=== PATIENT | male | born 1970 | race Caucasian/White ===

== ENCOUNTER 2017-09-29 16:22 | Emergency (ER) | payer MEDICARE, MEDICAID ==
[~2017-09-29] VITALS: Ht 167.6 cm; Wt 107.7 kg
[2017-09-29 17:23] LABS: BASOPHILS # (AUTO) 0.03 x10^3/uL (0-0.1); BASOPHILS % (AUTO) 0 % (0-1); EOSINOPHILS # (AUTO) 0.07 x10^3/uL (0-0.4); EOSINOPHILS % (AUTO) 1 % (1-7); LYMPHOCYTES # (AUTO) 2.24 x10^3/uL (1-3.4); LYMPHOCYTES % (AUTO) 32 % (22-44); MD NO; MEAN CORPUSCULAR HEMOGLOBIN 29.7 pg (27.5-34.5); MEAN CORPUSCULAR VOLUME 87.3 fL (81-97); MEAN PLATELET VOLUME 10.1 fL (7.4-10.4); MONOCYTES # (AUTO) 0.52 x10^3/uL (0.2-0.8); MONOCYTES % (AUTO) 8 % (2-9); NEUTROPHILS # (AUTO) 4.14 x10^3/uL (1.8-6.8); NEUTROPHILS % (AUTO) 59 % (42-75); PLATELET COUNT 129 x10^3/uL (130-400); RED BLOOD COUNT 6.08 x10^6/uL (4.38-5.82); RED CELL DISTRIBUTION WIDTH 14.1 % (9.4-14.8)
[2017-09-29 17:28] LABS: INTERNATIONAL NORMALIZED RATIO 1.04 (0.93-1.1); PROTHROMBIN TIME 10.7 Seconds (9.6-11.5)
[2017-09-29 17:30] LABS: MICROSCOPIC NOT IND
[2017-09-29 17:32] LABS: ALANINE AMINOTRANSFERASE 144 U/L (12-78); ANION GAP 5 mmol/L (5-15); CALCIUM 9.2 mg/dL (8.5-10.1); CHLORIDE 107 mmol/L (98-107); CREATININE 0.88 mg/dL (0.7-1.3)
[2017-09-29 17:35] LABS: ALKALINE PHOSPHATASE 129 U/L (45-117); BILIRUBIN,TOTAL 0.5 mg/dL (0.2-1.0); TOTAL PROTEIN 8.2 g/dL (6.4-8.2)
[2017-09-29 17:40] LABS: CULTURE INDICATED? NO
[2017-09-29] MEDS ORDERED: SODIUM CHLORIDE FLUSH 10ML SYR IVF ONE (18:30)
[2017-09-29] MEDS ORDERED: ONDANSETRON ODT 4 MG PO ONE (18:30)
[2017-09-29] MEDS ORDERED: MORPHINE SULFATE 4 MG/ML, 1ML ONE ×2 (18:47→19:24)
[2017-09-29] MEDS ORDERED: ONDANSETRON ODT 4 MG ONE (18:47)
[2017-09-29] MEDS: MORPHINE SULFATE 4 MG/ML, 1ML IVPush PRN ×2 (18:52→19:40)
[2017-09-29 20:28] VITALS: BP 129/73
== END 2017-09-29 20:31 | disposition home or self-care (01) ==
LOC: ED 19:28
DX: B18.2 Chronic viral hepatitis C (principal); R16.1 Splenomegaly, not elsewhere classified; Z90.49 Acquired absence of other specified parts of digestive tract; F17.210 Nicotine dependence, cigarettes, uncomplicated; K74.69 Other cirrhosis of liver
CPT/HCPCS: 36415; 74176; 80053; 81003; 83690; 85025; 85610; 85730; 96374; 96376; 99285; Q0162

== ENCOUNTER 2018-03-10 17:22 | Emergency (ER) | payer MEDICARE, MEDICAID ==
[~2018-03-10] VITALS: Ht 170.2 cm; Wt 110.8 kg
[~2018-03-10 17:22] MED LIST: PANT40TA5 PO
[2018-03-10] MEDS ORDERED: HYDROcodone/APAP 5/325 TABLET ONE (18:26)
[2018-03-10] MEDS ORDERED: HYDROcodone/APAP 5/325 TABLET PO ONE (18:30)
[2018-03-10 19:26] VITALS: BP 120/75
== END 2018-03-10 19:33 | disposition home or self-care (01) ==
LOC: ED 19:27
DX: S39.012A Strain of muscle, fascia and tendon of lower back, initial encounter (principal); Z87.891 Personal history of nicotine dependence; Z90.89 Acquired absence of other organs; Z90.49 Acquired absence of other specified parts of digestive tract; W05.0XXA Fall from non-moving wheelchair, initial encounter; Y93.89 Activity, other specified; Y92.009 Unspecified place in unspecified non-institutional (private) residence as the place of occurrence of the external cause; Y99.8 Other external cause status
CPT/HCPCS: 72110; 72220; 99284

== ENCOUNTER 2018-05-31 13:52 | Emergency (ER) | payer MEDICARE, MEDICAID ==
[~2018-05-31] VITALS: Ht 170.2 cm; Wt 111.2 kg
[2018-05-31 16:06] VITALS: BP 131/81
== END 2018-05-31 16:08 | disposition home or self-care (01) ==
LOC: ED 14:46
DX: L03.115 Cellulitis of right lower limb (principal); Z90.49 Acquired absence of other specified parts of digestive tract; Z87.891 Personal history of nicotine dependence; Z86.19 Personal history of other infectious and parasitic diseases
CPT/HCPCS: 99284

== ENCOUNTER 2018-09-19 17:51 | Emergency (ER) | payer MEDICARE, MEDICAID ==
[~2018-09-19] VITALS: Ht 167.6 cm; Wt 115.6 kg
[2018-09-19 17:54] VITALS: BP 164/76
--- NOTE | 2018-09-19 18:16 | NUR ---
Pt transported on gurney to ultrasound.
[2018-09-19 18:18] LABS: BASOPHILS # (AUTO) 0.04 x10^3/uL (0-0.1); BASOPHILS % (AUTO) 1 % (0-1); EOSINOPHILS # (AUTO) 0.18 x10^3/uL (0-0.4); EOSINOPHILS % (AUTO) 3 % (1-7); LYMPHOCYTES # (AUTO) 1.97 x10^3/uL (1-3.4); LYMPHOCYTES % (AUTO) 31 % (22-44); MD NO; MEAN CORPUSCULAR HEMOGLOBIN 30.8 pg (27.5-34.5); MEAN CORPUSCULAR HGB CONC 34.5 g/dL (33.2-36.2); MEAN CORPUSCULAR VOLUME 89.1 fL (81-97); MEAN PLATELET VOLUME 10.1 fL (7.4-10.4); MONOCYTES # (AUTO) 0.52 x10^3/uL (0.2-0.8); MONOCYTES % (AUTO) 8 % (2-9); NEUTROPHILS # (AUTO) 3.66 x10^3/uL (1.8-6.8); NEUTROPHILS % (AUTO) 58 % (42-75); PLATELET COUNT 136 x10^3/uL (130-400); RED CELL DISTRIBUTION WIDTH 13.3 % (9.4-14.8)
[2018-09-19 18:31] LABS: ALBUMIN 3.6 g/dL (3.4-5.0); ANION GAP 5 mmol/L (5-15); CALCIUM 8.8 mg/dL (8.5-10.1); CHLORIDE 107 mmol/L (98-107)
--- NOTE | 2018-09-19 18:55 | NUR ---
Provided report to SANDOVAL Meza. All questions answered. Pt away from room on [facility] at ultrasound.
--- NOTE | 2018-09-19 18:55 | NUR ---
PT MOVED TO ROOM 19
--- NOTE | 2018-09-19 18:58 | NUR ---
Provided bedside report to SANDOVAL Meza. All questions answered. SANDOVAL Meza assuming care of pt.
== END 2018-09-19 20:53 | disposition home or self-care (01) ==
LOC: ED 19:46
DX: L03.115 Cellulitis of right lower limb (principal); F17.200 Nicotine dependence, unspecified, uncomplicated; Z90.49 Acquired absence of other specified parts of digestive tract
CPT/HCPCS: 36415; 80048; 82040; 83880; 85025; 93970; 99284

== ENCOUNTER 2019-06-20 18:45 | Emergency (ER) | payer MEDICARE, MEDICAID ==
[2019-06-20 20:16] VITALS: BP 147/96
--- NOTE | 2019-06-20 20:30 | NUR ---
IV STARTED, BLOOD DRAWN. POC DISCUSSED. PA AT BEDSIDE
[2019-06-20] MEDS ORDERED: ONDANSETRON 2MG/ML, 2ML ONE (20:44)
[2019-06-20] MEDS ORDERED: SODIUM CHLORIDE FLUSH 10ML SYR IVF ONE (21:00)
[2019-06-20] MEDS ORDERED: PLEASE ENTER HEIGHT MC SCH (21:00)
[2019-06-20] MEDS ORDERED: ONDANSETRON 2MG/ML, 2ML IVPush ONE (21:00)
[2019-06-20 21:23] LABS: BASOPHILS # (AUTO) 0.02 x10^3/uL (0-0.1); BASOPHILS % (AUTO) 0 % (0-1); EOSINOPHILS # (AUTO) 0.12 x10^3/uL (0-0.4); EOSINOPHILS % (AUTO) 2 % (1-7); LYMPHOCYTES # (AUTO) 2.07 x10^3/uL (1-3.4); LYMPHOCYTES % (AUTO) 32 % (22-44); MD NO; MEAN CORPUSCULAR HEMOGLOBIN 30.2 pg (27.5-34.5); MEAN CORPUSCULAR HGB CONC 33.7 g/dL (33.2-36.2); MEAN CORPUSCULAR VOLUME 89.5 fL (81-97); MEAN PLATELET VOLUME 10.3 fL (7.4-10.4); MONOCYTES # (AUTO) 0.63 x10^3/uL (0.2-0.8); MONOCYTES % (AUTO) 10 % (2-9); NEUTROPHILS # (AUTO) 3.66 x10^3/uL (1.8-6.8); NEUTROPHILS % (AUTO) 56 % (42-75); PLATELET COUNT 129 x10^3/uL (130-400); RED BLOOD COUNT 5.59 x10^6/uL (4.38-5.82); RED CELL DISTRIBUTION WIDTH 13.6 % (9.4-14.8)
--- NOTE | 2019-06-20 21:28 | NUR ---
Patient resting comfortably. Medications given. tolerated well. Requesting water. Given nausea and vomiting, provided with ice chips to assess tolerance. Tolerated well after half hour without further nausea or vomiting. Awaiting lab results
[2019-06-20 21:36] LABS: ALANINE AMINOTRANSFERASE 169 U/L (12-78); ALBUMIN 3.5 g/dL (3.4-5.0); ANION GAP 5 mmol/L (5-15); CALCIUM 8.9 mg/dL (8.5-10.1); CHLORIDE 111 mmol/L (98-107); CREATININE 0.73 mg/dL (0.7-1.3)
[2019-06-20 21:38] LABS: ALKALINE PHOSPHATASE 129 U/L (45-117); BILIRUBIN,TOTAL 0.6 mg/dL (0.2-1.0); TOTAL PROTEIN 7.6 g/dL (6.4-8.2)
== END 2019-06-20 22:40 | disposition home or self-care (01) ==
LOC: ED 22:05
DX: K52.9 Noninfective gastroenteritis and colitis, unspecified (principal); B18.2 Chronic viral hepatitis C; R94.5 Abnormal results of liver function studies
CPT/HCPCS: 36415; 80053; 83690; 85025; 96374; 99283; J2405

== ENCOUNTER 2019-09-18 16:16 | Emergency (ER) | payer MEDICARE, MEDICAID ==
[~2019-09-18] VITALS: Ht 170.2 cm; Wt 109.7 kg
[2019-09-18 16:20] VITALS: BP 155/99
--- NOTE | 2019-09-18 16:34 | NUR ---
PT HERE FOR DENTAL PAIN. PT REPORTSVER PAINFUL, UNABLE TO SEE A DENTIST PT REPORTS POSSIBLE ABCESS ON FACE IT FELLS LIKE TIME HE HAD AN ABCESS BEFORE.
--- NOTE | 2019-09-18 16:45 | NUR ---
Patient/Caregiver given discharge instructions and they have confirmed that they understand the instructions. Patient ambulatory with steady gait.
== END 2019-09-18 16:47 | disposition home or self-care (01) ==
LOC: ED 16:17
DX: K02.9 Dental caries, unspecified (principal); R51 Headache; F17.210 Nicotine dependence, cigarettes, uncomplicated
CPT/HCPCS: 99283

== ENCOUNTER 2019-12-31 21:32 | Emergency (ER) | payer MEDICARE, MEDICAID ==
[~2019-12-31] VITALS: Ht 170.2 cm; Wt 109.0 kg
[2019-12-31] MEDS ORDERED: ONDANSETRON ODT 4 MG ONE (22:11)
[2019-12-31] MEDS ORDERED: FLUORESCEIN OPHTHALMIC 1 MG STRIP ONE (22:11)
[2019-12-31] MEDS ORDERED: PROPARACAINE OPHTH 0.5%, 15ML ONE (22:12)
[2019-12-31 22:25] LABS: BASOPHILS # (AUTO) 0.04 x10^3/uL (0-0.1); BASOPHILS % (AUTO) 1 % (0-1); EOSINOPHILS # (AUTO) 0.18 x10^3/uL (0-0.4); EOSINOPHILS % (AUTO) 3 % (1-7); LYMPHOCYTES # (AUTO) 1.82 x10^3/uL (1-3.4); LYMPHOCYTES % (AUTO) 30 % (22-44); MD NO; MEAN CORPUSCULAR HEMOGLOBIN 29.6 pg (27.5-34.5); MEAN CORPUSCULAR HGB CONC 33.8 g/dL (33.2-36.2); MEAN CORPUSCULAR VOLUME 87.6 fL (81-97); MEAN PLATELET VOLUME 10.2 fL (7.4-10.4); MONOCYTES # (AUTO) 0.64 x10^3/uL (0.2-0.8); MONOCYTES % (AUTO) 11 % (2-9); NEUTROPHILS # (AUTO) 3.35 x10^3/uL (1.8-6.8); NEUTROPHILS % (AUTO) 56 % (42-75); PLATELET COUNT 111 x10^3/uL (130-400); RED BLOOD COUNT 5.09 x10^6/uL (4.38-5.82)
[2019-12-31] MEDS ORDERED: ONDANSETRON ODT 4 MG PO ONE (22:30)
[2019-12-31] MEDS ORDERED: PROPARACAINE OPHTH 0.5%, 15ML EACHEYE ONE (22:30)
[2019-12-31] MEDS ORDERED: FLUORESCEIN OPHTHALMIC 1 MG STRIP EACHEYE ONE (22:30)
[2019-12-31 22:32] LABS: ANION GAP 6 mmol/L (5-15); CALCIUM 8.6 mg/dL (8.5-10.1); CHLORIDE 106 mmol/L (98-107); CREATININE 0.86 mg/dL (0.7-1.3)
[2019-12-31 23:15] VITALS: BP 132/86
== END 2019-12-31 23:34 ==
LOC: ED 22:25
DX: R10.84 Generalized abdominal pain (principal); M54.2 Cervicalgia; L03.221 Cellulitis of neck; H10.023 Other mucopurulent conjunctivitis, bilateral; R11.2 Nausea with vomiting, unspecified; R94.31 Abnormal electrocardiogram [ECG] [EKG]; Z87.891 Personal history of nicotine dependence
CPT/HCPCS: 36415; 80048; 85025; 93005; 99284; Q0162

== ENCOUNTER 2020-05-29 13:54 | Emergency (ER) | payer MEDICARE, MEDICAID ==
[~2020-05-29] VITALS: Ht 170.2 cm; Wt 104.0 kg
[~2020-05-29 13:54] MED LIST changes: -PANT40TA5 PO; +PANT40TA6 PO
[2020-05-29 15:42] LABS: BASOPHILS % (AUTO) 1 % (0-1); EOSINOPHILS % (AUTO) 3 % (1-7); HCT (SEDRATE) 46.5 % (39.2-51.8); LYMPHOCYTES % (AUTO) 31 % (22-44); MONOCYTES % (AUTO) 8 % (2-9); NEUTROPHILS % (AUTO) 58 % (42-75); PLATELET COUNT 124 x10^3/uL (130-400); RED BLOOD COUNT 5.24 x10^6/uL (4.38-5.82); RED CELL DISTRIBUTION WIDTH 13.4 % (9.4-14.8)
[2020-05-29 15:45] LABS: MD NO
[2020-05-29 15:52] LABS: ALBUMIN 3.8 g/dL (3.4-5.0); ANION GAP 2 mmol/L (5-15); CALCIUM 9.2 mg/dL (8.5-10.1); CHLORIDE 107 mmol/L (98-107); CREATININE 0.88 mg/dL (0.7-1.3)
--- NOTE | 2020-05-29 17:05 | NUR ---
COMMUNICATION COORDINATOR: PT TO ROOM FROM LOBBY
[2020-05-29] MEDS ORDERED: HYDROmorphone 2 MG/ML, 1ML IVPush PRN (18:00)
[2020-05-29] MEDS ORDERED: SODIUM CHLORIDE FLUSH 10ML SYR IVF ONE (18:00)
--- NOTE | 2020-05-29 18:34 | NUR ---
Patient in bed, difficulty finding comfortable position. MD aware.
[2020-05-29] MEDS ORDERED: HYDROmorphone 1 MG/ML, 1ML INJ ONE (18:56)
[2020-05-29] MEDS ORDERED: LORazepam 2 MG/ML, 1ML ONE (19:09)
[2020-05-29] MEDS ORDERED: LORazepam 2 MG/ML, 1ML IVPush ONE (19:30)
--- NOTE | 2020-05-29 19:34 | NUR ---
patient to MRI with tech.
[2020-05-29] MEDS ORDERED: GADOTERATE 10 MMOL/20 ML VIAL ONE (19:59)
[2020-05-29 21:05] LABS: MICROSCOPIC AUTO
--- NOTE | 2020-05-29 21:40 | NUR ---
Patient returned from MRI.
[2020-05-29 23:00] VITALS: BP 133/76
[2020-05-30] MEDS ORDERED: SOFO1TAB PO (11:44)
== END 2020-05-29 23:03 | disposition home or self-care (01) ==
LOC: ED 21:34
DX: N30.00 Acute cystitis without hematuria (principal); M47.816 Spondylosis without myelopathy or radiculopathy, lumbar region; F17.200 Nicotine dependence, unspecified, uncomplicated
CPT/HCPCS: 36415; 72157; 72158; 80048; 81001; 82040; 85025; 85651; 87086; 87147; 96374; 96375; 99285; A9575; J1170; J2060

== ENCOUNTER 2021-01-20 21:30 | Emergency (ER) | payer BC, MEDICAID, MEDICARE ==
[~2021-01-20] VITALS: Ht 170.2 cm; Wt 114.7 kg
[~2021-01-20 21:30] MED LIST changes: +SOFO1TAB PO
[2021-01-20 21:41] VITALS: BP 160/87
--- NOTE | 2021-01-20 23:38 | NUR ---
[employer]: PT. TO ROOM FROM LOBBY AT THIS TIME.
[2021-01-20 23:45] LABS: BASOPHILS % (AUTO) 1 % (0-1); EOSINOPHILS % (AUTO) 2 % (1-7); LYMPHOCYTES % (AUTO) 30 % (22-44); MEAN CORPUSCULAR HEMOGLOBIN 29.9 pg (27.5-34.5); MEAN CORPUSCULAR HGB CONC 34.7 g/dL (33.2-36.2); MEAN PLATELET VOLUME 9.5 fL (7.4-10.4); MONOCYTES % (AUTO) 8 % (2-9); NEUTROPHILS % (AUTO) 59 % (42-75); PLATELET COUNT 138 x10^3/uL (130-400); RED BLOOD COUNT 5.33 x10^6/uL (4.38-5.82); RED CELL DISTRIBUTION WIDTH 13.4 % (9.4-14.8)
[2021-01-20 23:55] LABS: ALBUMIN 3.8 g/dL (3.4-5.0); ANION GAP 5 mmol/L (5-15); CALCIUM 8.6 mg/dL (8.5-10.1); CHLORIDE 106 mmol/L (98-107); CREATININE 0.79 mg/dL (0.7-1.3)
--- NOTE | 2021-01-21 00:46 | NUR ---
PATIENT AWARE OF THE NEED TO PROVIDE URINE SAMPLE. PATIENT STATES HE DOESNT FEEL THE NEED TO URINATE. PATIENT HAS URINAL TO PROVIDE URINE SAMPLE.
[2021-01-21 02:30] LABS: MICROSCOPIC AUTO
[2021-01-21] MEDS ORDERED: CEFDINIR 300 MG CAPSULE ONE (02:38)
--- NOTE | 2021-01-21 02:51 | NUR ---
Patient given discharge instructions and they have confirmed that they understand the instructions. Patient ambulatory with steady gait. NAD, all questions answered appropriately, denies additional needs at this time. No personal belongings left in room after discharge.
[2021-01-21] MEDS ORDERED: CEFDINIR 300 MG CAPSULE PO ONE (03:00)
== END 2021-01-21 02:52 | disposition home or self-care (01) ==
LOC: ED 23:59
DX: N30.00 Acute cystitis without hematuria (principal); R60.0 Localized edema; M54.5 Low back pain; F17.200 Nicotine dependence, unspecified, uncomplicated; Z86.19 Personal history of other infectious and parasitic diseases; Z90.49 Acquired absence of other specified parts of digestive tract
CPT/HCPCS: 36415; 74176; 80048; 81001; 82040; 85025; 87086; 99285

== ENCOUNTER 2021-02-13 18:29 | Emergency (ER) | payer BC, MEDICARE ==
[~2021-02-13] VITALS: Ht 170.2 cm; Wt 113.7 kg
[2021-02-13 18:34] VITALS: BP 185/98
[2021-02-13 19:33] LABS: ALBUMIN 3.6 g/dL (3.4-5.0); ANION GAP 6 mmol/L (5-15); BASOPHILS % (AUTO) 0 % (0-1); CHLORIDE 102 mmol/L (98-107); EOSINOPHILS % (AUTO) 1 % (1-7); LYMPHOCYTES % (AUTO) 15 % (22-44); MEAN CORPUSCULAR HEMOGLOBIN 29.6 pg (27.5-34.5); MEAN CORPUSCULAR HGB CONC 34.4 g/dL (33.2-36.2); MONOCYTES % (AUTO) 10 % (2-9); NEUTROPHILS % (AUTO) 73 % (42-75); PLATELET COUNT 155 x10^3/uL (130-400); RED CELL DISTRIBUTION WIDTH 13.5 % (9.4-14.8)
[2021-02-13 19:36] LABS: CREATININE 0.93 mg/dL (0.7-1.3)
--- NOTE | 2021-02-13 21:59 | NUR ---
NIL WHEN CALLED FOR RE-VITALS IN TRIAGE
--- NOTE | 2021-02-14 00:23 | NUR ---
TASK RN: NOT IN LOBBY WHEN CALLED FOR ROOM
--- NOTE | 2021-02-14 00:37 | NUR ---
TASK RN: NOT IN LOBBY WHEN CALLED FOR ROOM. PT ASSUMED TO HAVE LEFT
== END 2021-02-14 00:38 | disposition left against medical advice (07) ==
LOC: ED 19:00
DX: L03.115 Cellulitis of right lower limb (principal)
CPT/HCPCS: 36415; 80048; 82040; 85025; 99283